=== PATIENT | female | born 1995 | race Caucasian/White ===

== ENCOUNTER 2017-12-16 13:18 | Emergency (ER) | payer SELFPAY ==
[2017-12-16 13:57] VITALS: BP 128/86; PULSE 58; TEMP 98.1; BMI 39.4
--- NOTE | 2017-12-16 14:45 | PDOC ---
History of Present Illness - General Chief Complaint: Pain, Acute Stated Complaint: RT NUMBNESS IN ARM/HAND Time Seen by Provider: 12/16/17 14:19 History Source: Patient Exam Limitations: No Limitations - History of Present Illness Initial Comments: 12/16/17 14:42 22 yr female s/p right shoulder cuff repair presents with one month numbness, tingling burning pain to her fingers and arm worse at night, worse with movement of the wrist. pt is right hand dominant denies injury. pt denies fever or chills no abd pain or chest pain, pt works in [employer] and making hike. pt took aleve no relief. Past History - Past Medical History Allergies/Adverse Reactions: Allergies Allergy/AdvReac Type Severity Reaction Status Date / Time No Known Allergies Allergy Verified 12/16/17 13:57 Home Medications: Ambulatory Orders Prednisone [Deltasone] 40 mg PO DAILY #14 tablet 12/16/17 - Suicide/Smoking/Psychosocial Hx Smoking History: Never smoked Have you smoked in the past 12 months: No Information on smoking cessation initiated: No Hx Alcohol Use: No Drug/Substance Use Hx: No Review of Systems - Review of Systems Able to Perform ROS?: Yes Is the patient limited Ivorian proficient: No Musculoskeletal: Yes: Symptoms Reported, Other (pain right arm to middel digit, 4th and 5th digits ) *Physical Exam - Vital Signs Last Vital Signs Temp Pulse Resp BP Pulse Ox 98.1 F 58 L 16 128/86 100 12/16/17 13:54 12/16/17 13:54 12/16/17 13:54 12/16/17 13:54 12/16/17 13:54 - Physical Exam General Appearance: Yes: Nourished, Appropriately Dressed, Obese HEENT: positive: EOMI, EVA Neck: positive: Tender, Tender lateral (right ) Respiratory/Chest: positive: Lungs Clear, Normal Breath Sounds Cardiovascular: positive: Regular Rhythm, Regular Rate Musculoskeletal: positive: Normal Inspection Extremity: positive: Normal Capillary Refill, Normal Inspection, Normal Range of Motion Integumentary: positive: Normal Color, Dry, Warm Neurologic: positive: accountant II-XII NML intact, Fully Oriented, Alert, Normal Mood/ Affect, Normal Response, Motor Strength 5/5, Finger to Nose (sensation intact to the right 4th 5th fingers ). negative: Sensory Deficit ED Treatment Course - RADIOLOGY Radiology Studies Ordered: Category Date Time Status SHOULDER-RIGHT [RAD] Stat Radiology 12/16/17 14:41 Ordered SPINE-CERVICAL [RAD] Stat Radiology 12/16/17 14:41 Ordered Medical Decision Making - Medical Decision Making 12/16/17 14:44 cc: one month numbness, tingling pain right arm lateral to medial and to the fingers, 3rd 4th 5th will get shoulder and cervical spine xray 12/16/17 14:45 *DC/Admit/Observation/Transfer Diagnosis at time of Disposition: Cervical radiculopathy - Discharge Dispostion Disposition: HOME Condition at time of disposition: Good - Prescriptions Prescriptions: Prednisone [Deltasone] 40 mg PO DAILY #14 tablet - Referrals Referrals: Iban Peña MD [Staff Physician] - - Patient Instructions Additional Instructions: take the steroids as directed use the sling while awake except to bathe or sleep apply warm compresses to the area of pain at your neck and shoulder consider using a wrist splint made for carpal tunnel, sold in surgical supply [employer], or [employer] follow with the orthopedist listed below or your orthopedist - Post Discharge Activity Forms/Work/School Notes: Back to Work
== END 2017-12-16 15:42 | disposition home or self-care (01) ==
LOC: JERFT 13:18
DX: M54.12 Radiculopathy, cervical region (principal)
CPT/HCPCS: 72050-TC-FY; 73030-TC-RT-FY; 99281-25